=== PATIENT | male | born 1950 | race Caucasian/White ===

== ENCOUNTER 2024-06-07 08:53 | Emergency (ER) | payer MEDICARE, OTHER, SELFPAY ==
--- NOTE | ~2024-06-07 | XR_ITS ---
EXAMINATION: XR chest 2V DATE: 06/07/2024 09:35 INDICATION: Cough and shortness of breath TECHNIQUE: PA and lateral views of the chest were obtained. COMPARISON: None FINDINGS: Mild streaky bibasilar atelectasis. No pulmonary edema, pleural effusion or pneumothorax. The cardiom ediastinal silhouette is normal. Likely benign rim calcified splenic lesion underlying the left hemid iaphragm. Mild thoracic spondylosis. IMPRESSION: 1. Mild bibasilar atelectasis. Reviewed, dictated and finalized at location A. F [employer]CCUPATIONAL THER[employer]IST
[2024-06-07 09:07] VITALS: BP 128/87; PULSE 90; RESP 18; TEMP 35.8; O2SAT 94
--- NOTE | 2024-06-07 09:08 | ED.URI ---
HPI - URI/Sore Throat General Chief Complaint: Upper Respiratory Infection Stated Complaint: COUGH/CONGESTION/SORE THROAT/EARS CLOGGED Source: patient Mode of arrival: ambulatory Limitations: no limitations History of Present Illness HPI Narrative: 74 y/o male with hx DM presented for c/o cough, nasal congestion, sore throat, and ear pressure. Onset 1 week. Endorses sob with exertion. Denies wheezing, n/v/d/f/c. Taking mucinex and theraflu. Related Data Home Medications ?Medication ?Instructions ?Recorded ?Confirmed ?Last Taken ?Type albuterol sulfate 90 mcg/actuation 1 inh inhalation Q4H 05/29/22 06/06/22 Unknown History aerosol inhaler (Proventil HFA) aspirin 81 mg tablet,delayed 81 mg PO DAILY 05/29/22 06/06/22 Unknown History release (Adult Aspirin Regimen) cholecalciferol (vitamin D3) 25 25 mcg PO DAILY 05/29/22 06/06/22 Unknown History mcg (1,000 unit) capsule fluticasone furoate 50 inhalation 05/29/22 06/06/22 Unknown History mcg/actuation blister powder for inhalation Allergies Allergy/AdvReac Type Severity Reaction Status Date / Time cedar leaf Allergy Wheezing Verified 06/07/24 09:10 levofloxacin (From Levaquin) Allergy Other Verified 06/07/24 09:10 Review of Systems Review of Systems: CONSTITUTIONAL: Denies body aches, fever, chills, or sweats. EYES: Denies visual changes, redness, or discharge. ENT: reports rhinorrhea, congestion, sore throat, otalgia. CARDIOVASCULAR: Denies chest pain, palpitations, or edema. RESPIRATORY: Reports cough, sob with exertion. denies wheezing. GASTROINTESTINAL: Denies abdominal pain, nausea, vomiting, or diarrhea. MUSCULOSKELETAL: Denies back pain, joint pain, or myalgia. NEUROLOGIC: Denies headache All systems reviewed & are unremarkable except as noted in HPI and below PMFSH Past Medical History Medical History Chronic kidney disease, stage 2 (mild) Hypertensive chronic kidney disease with stage 1 through stage 4 chronic kidney disease, or unspecified chronic kidney disease Essential (primary) hypertension Generalized osteoarthritis Benign prostatic hyperplasia with lower urinary tract symptoms Type 2 diabetes mellitus without complications Vitamin D deficiency, unspecified Hyperlipidemia, unspecified Male erectile dysfunction, unspecified Other intervertebral disc degeneration, lumbosacral region Allergic rhinitis, unspecified Surgical History Surgical History H/O wrist surgery left wrist tendon repair 1980s H/O umbilical hernia repair incarcerated 10/31/2013 Family History Family History Father Diabetes mellitus Cancer Mother Diabetes mellitus Social History Social History Smoking status: Former smoker Alcohol intake: never Substance use: never Substance use type: does not use Do You Feel Safe in your Home?: Yes Lack of Transportation: No Lack of Food: Never True Current Housing: I Have Housing Concerned About Future Housing: No Difficulty Paying Gas/Electric Bills: No Difficulty Paying for Meds: No Currently Unemployed: No Education: High School Diploma/GED Difficulty w/ Childcare or Family Care: No Living arrangements: with family Gender identity (if verbalized by the patient): Male Sexual Orientation (if Verbalized by the Patient): Straight or Heterosexual Comments At time of signature, I have reviewed and agree with nursing past medical, surgical, social and family history unless otherwise noted. Please see nursing chart for further information. There is no relevant family history pertinent to the presenting complaint Exam Narrative: GENERAL: Well-appearing, in no acute distress. EYES: EOMI. No redness or drainage. Conjunctivae normal. ENT: Mucous membranes pink and moist. No rhinorrhea. TMs normal bilaterally. Throat normal. Uvula midline. NECK: Normal AROM. Supple. CHEST: No respiratory distress. Lungs diminished to bases. HEART: Irregular rate and rhythm. No murmur appreciated. ABDOMEN: Soft, large round, nontender, nondistended, normal active bowel sounds. EXTREMITIES: Normal range of motion. No edema. SKIN: Warm, dry, no rash. Capillary refill normal. Normal skin turgor. NEURO: Alert and oriented x3. Gait steady. PSYCH: Normal affect. Course Course Emergency Course: Patient is aware of diagnosis, understands and agrees to treatment plan. Anticipatory guidance given. Patient agrees to follow-up as directed and is aware of reasons to seek care at the emergency department. Portions of this record may have been created with voice recognition software Level of Care: Express Care Visit Vital Signs Vital signs: Vital Signs Oxygen Delivery Room Air 06/07/24 09:06 Temperature 96.5 F L 06/07/24 09:07 Pulse Rate 90 06/07/24 09:07 Respiratory Rate 18 06/07/24 09:07 Blood Pressure 128/87 06/07/24 09:07 Pulse Oximetry 94 06/07/24 09:07 Oxygen Delivery Room Air 06/07/24 09:06 MDM - URI/Sore Throat MDM Narrative Medical decision making narrative: Discussed physical exam findings, CXR and EKG NSR with PVC. Advised supportive measures and signs/symptoms to go to the ER. Pt is appropriate for outpt treatment and f/u. Differential Diagnosis Differential diagnosis: Likely upper respiratory infection, otitis media, sinusitis, viral infection, bronchitis and other (pneumonia, chf) Imaging Data Radiologist's impression: Patient: Arnaud Paz : 1950 MR#: [id number] Age: 74 Acct:[id number] Loc: [facility] ADM Date: 06/07/24Attending Dr: Ordering Physician: Marie Weber APRN Date of Service: 06/07/24 Procedure(s): XR chest 2V Accession Number(s): [id number] cc: Marie Weber APRN; Rajendra Hopkins MD~ EXAMINATION: XR chest 2V DATE: 06/07/2024 09:35 INDICATION: Cough and shortness of breath TECHNIQUE: PA and lateral views of the chest were obtained. COMPARISON: None FINDINGS: Mild streaky bibasilar atelectasis. No pulmonary edema, pleural effusion or pneumothorax. The cardiomediastinal silhouette is normal. Likely benign rim calcified splenic lesion underlying the left hemidiaphragm. Mild thoracic spondylosis. IMPRESSION: 1. Mild bibasilar atelectasis. ECG Data EKG #1: Attestation: I personally reviewed and interpreted this ECG as follows: (NSR PVCs, rate 72. P are 154, QRS 99, QT/QTC 395/418) ECG completion date: 06/07/24 ECG completion time: 09:52 Prior ECG tracings: not available for review EKG Interpretation: normal rate, sinus rhythm and PVCs Discharge Plan Discharge Clinical Impression: Bronchitis, Asymptomatic PVCs Patient Disposition: Home, Self-Care Condition: Stable Instructions: Antibiotic Form, Acute Bronchitis (ED) Additional Instructions: Acute bronchitis can be contagious because it is usually caused by infection with a virus or bacteria. It is usually for a few days but you can be contagious for up to one week. Avoid crowds until you do not have a fever and symptoms are improved Take medication as directed Recommend Flonase spray and Zyrtec (or Claritin/Aimee) for nasal congestion over the counter Cough syrup may cause drowsiness; avoid driving or take it at night time. (Coricidin HBP) Tylenol 1000mg every 8 hours as needed for pain Symptomatic treatment includes: rest, fluids, and increase humidity of the air at home. Follow up with your primary care provider call to schedule an appointment. Go to the ER for worsening symptoms or concerns Patient Language: Palestinian Prescriptions: New azithromycin [Zithromax Z-Familia] 250 mg tablet See Rx Instructions .ROUTE .COMPLEX Qty: 6 0RF Rx Instructions: For 250 mg dose pack: take 500 mg today (day 1), then 250 mg for 4 days (days 2-5) benzonatate 200 mg capsule 200 mg PO TID PRN (Reason: cough) Qty: 20 0RF prednisone 50 mg tablet 50 mg PO DAILY Qty: 5 0RF No Action cholecalciferol (vitamin D3) 25 mcg (1,000 unit) capsule 25 mcg PO DAILY aspirin [Adult Aspirin Regimen] 81 mg tablet,delayed release (DR/EC) 81 mg PO DAILY albuterol sulfate [Proventil HFA] 90 mcg/actuation HFA aerosol inhaler 1 inh inhalation Q4H fluticasone furoate 50 mcg/actuation blister with device inhalation tadalafil 5 mg tablet 5 mg PO DAILY Qty: 90 3RF diclofenac sodium 75 mg tablet,delayed release (DR/EC) 75 mg PO BID 30 Days Qty: 60 5RF dutasteride 0.5 mg capsule See Rx Instructions .ROUTE .COMPLEX Qty: 90 2RF Dose Instruction: Take 1 capsule by mouth once daily Rx Instructions: Take 1 capsule by mouth once daily pioglitazone 30 mg tablet See Rx Instructions .ROUTE .COMPLEX Qty: 90 1RF Dose Instruction: Take 1 tablet by mouth once daily for 90 days Rx Instructions: Take 1 tablet by mouth once daily for 90 days amlodipine 5 mg tablet See Rx Instructions .ROUTE .COMPLEX Qty: 90 1RF Dose Instruction: TAKE 1 TABLET BY MOUTH EVERY DAY Rx Instructions: TAKE 1 TABLET BY MOUTH EVERY DAY glimepiride 4 mg tablet 4 mg PO BID 90 Days Qty: 180 1RF Follow-up/Referrals: Rajendra Hopkins MD [Primary Care Provider] - Time of Disposition: 10:07
--- NOTE | 2024-06-07 09:13 | ECG_ITS ---
Test Date: 2024-06-07 09:52:00 Measurements Intervals [place] Rate: 72 P: 79 [place]: 154 QRS: -10 QRSD: 99 T: 80 QT: 395 QTc: 432 Interpretive Statements SINUS RHYTHM WITH FREQUENT VENTRICULAR PREMATURE COMPLEXES NONSPECIFIC T-WAVE ABNORMALITY ABNORMAL RHYTHM ECG No previous ECG available for comparison Electronically Signed On 06-07-2024 10:51:48 [facility] by Juaquin Ko M.D.
== END 2024-06-07 10:10 | disposition home or self-care (01) ==
PROVIDERS: Emergency Provider Nurse Practitioner Family; PCP Family Medicine
DX: J40 Bronchitis, not specified as acute or chronic (principal); I49.3 Ventricular premature depolarization; I12.9 Hypertensive chronic kidney disease with stage 1 through stage 4 chronic kidney disease, or unspecified chronic kidney disease; E11.22 Type 2 diabetes mellitus with diabetic chronic kidney disease; N18.2 Chronic kidney disease, stage 2 (mild); N40.1 Benign prostatic hyperplasia with lower urinary tract symptoms; E55.9 Vitamin D deficiency, unspecified; E78.5 Hyperlipidemia, unspecified; M51.369 Other intervertebral disc degeneration, lumbar region without mention of lumbar back pain or lower extremity pain
CPT/HCPCS: 71046; 93005; 99213; G0463